=== PATIENT | female | born 1950 | race Two or more races ===

== ENCOUNTER 2018-11-23 18:00 | Emergency (ER) | payer MEDICARE, OTHER ==
[~2018-11-23] VITALS: Ht 157.5 cm; Wt 117.9 kg
[2018-11-23] MEDS ORDERED: DILTIAZEM ER120 M1 PO (18:24)
[2018-11-23] MEDS ORDERED: ATORVASTATIN CA40 MG ORAL (18:24)
[2018-11-23 18:25] VITALS: BP 171/58
--- NOTE | 2018-11-23 18:25 | NUR ---
ED Nurse Note: Patient walked into ED accompanied by daughter, c/o right leg swelling that has been an on going issue for the past week, patient presents with redness on her right leg, complains of 8/10 pain, patient is ambulatory however with a walker, patient is a mohawk speaking female who is alert and oriented x4, IV started on left forearm 22 gauge, labs sent down, patient is in bed, side rails up, will wait for further orders
[2018-11-23] MEDS ORDERED: LISINOPRIL2.5 MG ORAL (18:40)
[2018-11-23] MEDS ORDERED: FUROSEMIDE40 MG ORAL (18:40)
[2018-11-23] MEDS ORDERED: OMEPRAZOLE20 M2 ORAL (18:40)
[2018-11-23] MEDS ORDERED: NOVOLOG100 UNIT/4 SQ (18:40)
[2018-11-23] MEDS ORDERED: VICTOZA 2-0.6 MG/0.1 SUBQ (18:40)
[2018-11-23] MEDS ORDERED: FERROUS SULFAT325 MG ORAL (18:40)
[2018-11-23] MEDS ORDERED: METFORMIN HCL1000 M1 ORAL (18:40)
--- NOTE | 2018-11-23 18:50 | NUR ---
ED Nurse Note: Ultrasound at bedside
--- NOTE | 2018-11-23 18:57 | Emergency Room Report ---
History of Present Illness General Chief Complaint: Skin Rash/Abscess Source: Patient Present Illness HPI Patient is a 68-year-old female who presents after increased right sided leg pain and swelling. Patient a prior history of cardiac disease. She is normally on Lasix. She reports been compliant with her medications. She denies any shortness of breath. She reports having increased discomfort as well as pain to the posterior right calf with associated right leg blistering and swelling. She denies any fever. She had been urinating normally. Denies any chest discomfort at this time. She had gradual onset of worsening swelling. Patient takes multiple medications. Patient denies any antibiotic allergies. She had surgery approximately 5 months ago for hernia and subsequently had surgical revisions. Allergies: Coded Allergies: No Known Allergies (Unverified , 11/23/18) Patient History Past Medical History: see triage record Reviewed Nursing Documentation: PMH: Agreed; PSxH: Agreed Nursing Documentation-PM Past Medical History: No History, Except For Hx Cardiac Problems: Yes - CHF Hx Hypertension: Yes Hx Diabetes: Yes Review of Systems All Other Systems: negative except mentioned in HPI Physical Exam Vital Signs Date Time Temp Pulse Resp B/P (MAP) Pulse Ox O2 Delivery O2 Flow Rate FiO2 11/23/18 18:18 98.4 84 16 171/58 (95) 97 Room Air Sp02 EP Interpretation: reviewed, normal General Appearance: normal inspection, well appearing, alert, GCS 15, Chronically Ill Head: atraumatic ENT: normal ENT inspection, hearing grossly normal, normal voice Neck: normal inspection, full range of motion, supple, no bony tend Respiratory: normal inspection, lungs clear, normal breath sounds, no respiratory distress, no retraction, no wheezing Cardiovascular #1: regular rate, rhythm, no edema Gastrointestinal: normal inspection, normal bowel sounds, non tender, soft, no guarding, no hernia Genitourinary: no CVA tenderness Musculoskeletal: normal inspection, back normal, normal range of motion Neurologic: normal inspection, alert, oriented x3, responsive, speech normal Psychiatric: normal inspection, judgement/insight normal, mood/affect normal Skin: other - right lower extremity swelling and blistering, slight erythema Medical Decision Making Diagnostic Impression: Primary Impression: Cellulitis of right leg Additional Impression: Urinary tract infection ER Course Presented for right lower extremity pain and swelling. Differential diagnosis include was not limited to cellulitis, CHF, abscess, deep venous thrombosis among others. Because of complexity of patient's case laboratory tests and imaging studies were ordered. EKG interpreted by me showed normal sinus rhythm with a rate of [address] or T wave changes. Patient was noted to have some significant swelling to the right lower extremity. She was given IV Lasix. She was started on IV antibiotics due to what appears to be some cellulitic areas. The patient was advised risk benefits alternatives of leaving AGAINST MEDICAL ADVICE and he indicated understanding and all questions are answered patient still continued want to leave and signed AGAINST MEDICAL ADVICE. Despite risks including but not limited to disability and worsening of current lifestyle.Patient was advised that she could return at any time. She was given prescription for Keflex. Labs Test 11/23/18 18:30 11/23/18 19:15 White Blood Count 9.2 K/UL (4.8-10.8) Red Blood Count 3.86 M/UL (4.20-5.40) Hemoglobin 11.0 G/DL (12.0-16.0) Hematocrit 34.1 % (37.0-47.0) Mean Corpuscular Volume 88 FL (80-99) Mean Corpuscular Hemoglobin 28.5 PG (27.0-31.0) Mean Corpuscular Hemoglobin Concent 32.3 G/DL (32.0-36.0) Red Cell Distribution Width 14.1 % (11.6-14.8) Platelet Count 268 K/UL (150-450) Mean Platelet Volume 6.6 FL (6.5-10.1) Neutrophils (%) (Auto) 63.5 % (45.0-75.0) Lymphocytes (%) (Auto) 29.3 % (20.0-45.0) Monocytes (%) (Auto) 5.2 % (1.0-10.0) Eosinophils (%) (Auto) 1.3 % (0.0-3.0) Basophils (%) (Auto) 0.7 % (0.0-2.0) Sodium Level 137 MMOL/L (136-145) Potassium Level 4.6 MMOL/L (3.5-5.1) Chloride Level 99 MMOL/L (98-107) Carbon Dioxide Level 27 MMOL/L (21-32) Anion Gap 11 mmol/L (5-15) Blood Urea Nitrogen 25 mg/dL (7-18) Creatinine 1.6 MG/DL (0.55-1.30) Estimat Glomerular Filtration Rate 32.0 mL/min (>60) Glucose Level 198 MG/DL (74-106) Lactic Acid Level 2.00 mmol/L (0.4-2.0) Calcium Level 9.1 MG/DL (8.5-10.1) Phosphorus Level 3.6 MG/DL (2.5-4.9) Magnesium Level 1.9 MG/DL (1.8-2.4) Total Bilirubin 0.3 MG/DL (0.2-1.0) Aspartate Amino Transf (AST/SGOT) 23 U/L (15-37) Alanine Aminotransferase (ALT/SGPT) 28 U/L (12-78) Alkaline Phosphatase 183 U/L (46-116) Total Creatine Kinase 45 U/L (26-308) Creatine Kinase MB 0.7 NG/ML (0.0-3.6) Creatine Kinase MB Relative Index 1.5 Troponin I 0.027 ng/mL (0.000-0.056) Pro-B-Type Natriuretic Peptide 1128 pg/mL (0-125) Total Protein 7.8 G/DL (6.4-8.2) Albumin 3.1 G/DL (3.4-5.0) Globulin 4.7 g/dL Albumin/Globulin Ratio 0.7 (1.0-2.7) Lipase 128 U/L (73-393) Urine Color Pale yellow Urine Appearance Clear Urine pH 6.5 (4.5-8.0) Urine Specific [place] 1.005 (1.005-1.035) Urine Protein 2+ (NEGATIVE) Urine Glucose (UA) 3+ (NEGATIVE) Urine Ketones Negative (NEGATIVE) Urine Blood 2+ (NEGATIVE) Urine Nitrite Positive (NEGATIVE) Urine Bilirubin Negative (NEGATIVE) Urine Urobilinogen Normal MG/DL (0.0-1.0) Urine Leukocyte Esterase 1+ (NEGATIVE) Urine RBC 2-4 /HPF (0 - 2) Urine WBC 15-20 /HPF (0 - 2) Urine Squamous Epithelial Cells Moderate /LPF (NONE/OCC) Urine Bacteria Many /HPF (NONE) Last Vital Signs Date Time Temp Pulse Resp B/P (MAP) Pulse Ox O2 Delivery O2 Flow Rate FiO2 11/23/18 18:18 98.4 84 16 171/58 (95) 97 Room Air Status: improved Disposition: HOME, SELF-CARE Condition: Stable Scripts Cephalexin* (KEFLEX*) 500 Mg Capsule 500 MG ORAL EVERY 6 HOURS, #28 CAP Prov: Pieter May MD 11/23/18 Pieter May MD Nov 23, 2018 18:56
[2018-11-23] MEDS ORDERED: Piperacillin/Tazobactam 3.375 GM in NS 110 ML IVPB ONE (19:00)
[2018-11-23 19:01] LABS: BASOPHILS % (AUTO) 0.7 % (0.0-2.0); EOSINOPHILS % (AUTO) 1.3 % (0.0-3.0); HEMATOCRIT 34.1 % (37.0-47.0); LYMPHOCYTES % (AUTO) 29.3 % (20.0-45.0); MEAN CORPUSCULAR VOLUME 88 FL (80-99); MONOCYTES % (AUTO) 5.2 % (1.0-10.0); NEUTROPHILS % (AUTO) 63.5 % (45.0-75.0); PLATELET COUNT 268 K/UL (150-450); RED BLOOD COUNT 3.86 M/UL (4.20-5.40); RED CELL DISTRIBUTION WIDTH 14.1 % (11.6-14.8); WHITE BLOOD COUNT 9.2 K/UL (4.8-10.8)
[2018-11-23 19:04] LABS: ANION GAP 11 mmol/L (5-15); BLOOD UREA NITROGEN 25 mg/dL (7-18); CALCIUM 9.1 MG/DL (8.5-10.1); CARBON DIOXIDE 27 MMOL/L (21-32); CHLORIDE 99 MMOL/L (98-107); CREATININE 1.6 MG/DL (0.55-1.30); POTASSIUM 4.6 MMOL/L (3.5-5.1); SODIUM 137 MMOL/L (136-145)
--- NOTE | 2018-11-23 19:07 | NUR ---
HAND-OFF: Report given to KIA Arreola.
[2018-11-23 19:17] LABS: ALANINE AMINOTRANSFERASE 28 U/L (12-78); ALBUMIN 3.1 G/DL (3.4-5.0); ALBUMIN/GLOBULIN RATIO 0.7 (1.0-2.7); ALKALINE PHOSPHATASE 183 U/L (46-116); ASPARTATE AMINO TRANSFERASE 23 U/L (15-37); BILIRUBIN,TOTAL 0.3 MG/DL (0.2-1.0); CKMB 0.7 NG/ML (0.0-3.6); CREATINE KINASE 45 U/L (26-308); PHOSPHORUS 3.6 MG/DL (2.5-4.9)
[2018-11-23 20:01] LABS: APPEARANCE,URINE CLEAR; BILIRUBIN, URINE NEGATIVE (NEGATIVE); COLOR,URINE PALE YELLOW; GLUCOSE, URINE (UA) 3+ (NEGATIVE); KETONES,URINE NEGATIVE (NEGATIVE); LEUKOCYTE ESTERASE ,URINE 1+ (NEGATIVE); NITRITE,URINE POSITIVE (NEGATIVE); PH,URINE 6.5 (4.5-8.0); PROTEIN,URINE 2+ (NEGATIVE); UROBILINOGEN,URINE NORMAL MG/DL (0.0-1.0)
[2018-11-23] MEDS ORDERED: CEPHALEXIN500 MG ORAL (20:56)
[2018-11-23 21:05] VITALS: BP 171/58
--- NOTE | 2018-11-23 21:05 | NUR ---
AMA: SEE AMA FORM. Pt given DC and RX instructions per ERMD, pt and daughter aware of the risks, verbalized understanding. IV removed. Pt using walker with steady gate
--- NOTE | 2018-11-26 11:43 | Cardiology Report ---
APPROVED REPORT EKG Measurement Heart [id number] 160P-3 [id number] Normal sinus rhythm Abnormal QRS-T angle, consider primary T wave abnormality Abnormal ECG
--- NOTE | 2018-11-26 14:46 | Diagnostic Imaging Report ---
Indication: Right lower extremity pain Technique: Grayscale and duplex images of the right lower extremity veins Comparison: none Findings: Grayscale and duplex images demonstrate no evidence of intraluminal thrombus. Normal phasic Doppler waveforms demonstrate normal augmentation response. No evidence of valvular insufficiency. Normal compressibility. There is edema of the subcutaneous fat of the distal leg Impression: Negative for right lower extremity deep venous thrombosis
--- NOTE | 2018-11-26 15:53 | Diagnostic Imaging Report ---
Indication: Reason For Exam: SOB Technique: One view of the chest Comparison: none Findings: No acute infiltrates, effusions, or congestion. Tortuous calcified aorta. Normal heart size. Upper mediastinum unremarkable. Impression: No acute process.
== END 2018-11-23 21:05 | disposition left against medical advice (07) ==
LOC: EMR 18:40
DX: L03.115 Cellulitis of right lower limb (principal); N39.0 Urinary tract infection, site not specified; I11.0 Hypertensive heart disease with heart failure; I50.9 Heart failure, unspecified; E11.9 Type 2 diabetes mellitus without complications
CPT/HCPCS: 36415; 71045; 80053; 81003; 82550; 82553; 83605; 83690; 83735; 83880; 84100; 84484; 85025; 87040; 87086; 93005; 93971; 96365; 96375; 99284; J1940; 87181